=== PATIENT | female | born 1955 | race Caucasian/White ===

== ENCOUNTER 2019-11-08 07:19 | Emergency (ER) | payer BC, MEDICARE, SELFPAY ==
[2019-11-08 07:20] VITALS: BP 149/89; PULSE 54; RESP 17; TEMP 37.4; O2SAT 97; BMI 26.1
--- NOTE | 2019-11-08 07:41 | RAD_ITS ---
STUDY: X-RAY - RIGHT FOOT CLINICAL: Female, 64 years old. Fall, bruising laterally. TECHNIQUE: 3 view(s) of the foot. COMPARISON: None. FINDINGS: Acute oblique oriented fracture through the right metatarsal shaft. No dislocation. No bone destruction. Chronic dorsal talar avulsion fragment. Regions of mild joint space narrowing. Achilles enthesophyte. 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 Soft tissue swelling laterally RAD/Foot min 3 Views IMPRESSION: Acute obliquely oriented right fifth metatarsal shaft fracture Soft tissue swelling Electronically Signed: Maxim Alarcon DO at 8:06 EST Tel , Service support ,
--- NOTE | 2019-11-08 07:42 | ED.DCSUM_ITS ---
- ER Visit Summary Date of Service: 11/08/19 Chief Complaint: Right foot injury History of Present Illness: The patient is a 64 F who presents with a right foot injury that occurred yesterday. Patient states she missed a step and twisted her right foot. Patient states the pain is sharp and throbbing. Patient states pain is worse with movement and ambulation. Patient denies any paresthesias or weakness. Patient denies any head injury or loss of consciousness. Patient denies any other injuries. Physical Examination: Vital signs are stable. Patient is afebrile. Patient is in no acute distress. There is tenderness, edema, and ecchymosis over the distal fifth metatarsal. There is no bony crepitance or step-off. There is no deformity noted. Sensation was intact to light touch in all digits. Capillary refill was less than 2 seconds in all digits. There is good pedal pulse. There is good range of motion. Test Results: X-rays of the right foot were obtained. There is a nondisplaced oblique fracture of the shaft of the fifth metatarsal. This was interpreted by the radiologist and myself. Emergency Department Course and Treatment: Patient was given a walking boot. Patient was instructed to ice and elevate the right foot. Patient was given referral to Dr. Morse who is on-call for orthopedics. Patient was instructed to follow-up in 5-7 days. Patient declined analgesics. Patient understood and was agreeable with the plan. All questions were answered. Disposition: Discharge home Impression: Acute fracture right fifth metatarsal This note was generated with [employer] dictation software. It may contain incorrect words, spelling, and punctuation that were not noted in review of the chart prior to signing ED Disposition - Plan for ED Patient: Disposition: Home or Assisted Living Diagnosis: Nondisplaced fracture of fifth right metatarsal bone Instructions: FRACTURE, Foot Referrals: Alex Dalal III, MD [Primary Care Provider] - Bean Morse MD [STAFF PHYSICIAN] - 5-7 Days
--- NOTE | 2019-11-08 08:28 | ED.RN ---
DISCHARGE INSTRUCTIONS GIVEN TO AND REVIEWED WITH PATIENT, PATIENT DENIES QUESTIONS OR CONCERNS AND VOICES UNDERSTANDING OF DISCHARGE INSTRUCTIONS.
== END 2019-11-08 08:37 | disposition home or self-care (01) ==
PROVIDERS: Emergency Provider Emergency Medicine; Family Provider Family Medicine; PCP Family Medicine
DX: S92.354A Nondisplaced fracture of fifth metatarsal bone, right foot, initial encounter for closed fracture (principal); X50.1XXA Overexertion from prolonged static or awkward postures, initial encounter; Y93.9 Activity, unspecified; Y92.9 Unspecified place or not applicable; Y99.9 Unspecified external cause status; E03.9 Hypothyroidism, unspecified; Z79.899 Other long term (current) drug therapy
CPT/HCPCS: 73630; 99283

== ENCOUNTER → 2020-01-24 08:04 | Outpatient (CLI) | payer BC, MEDICARE, SELFPAY ==
--- NOTE | 2020-01-24 08:09 | CT_ITS ---
STUDY: CT RIGHT FOOT REASON FOR EXAM: Female, 64 years old. RIGHT FOOT FX 11/07/19 RADIATION DOSAGE (If Supplied By Facility): CTDIvol = ( 15.35 ) mGy, DLP = ( 357.60 ) mGycm TECHNIQUE: Thin section transaxial imaging of the foot was obtained, with sagittal and coronal reconstructed images. Individualized dose optimization techniques were used for this CT. COMPARISON: Previous plain film study of 11/08/2019 FINDINGS: Normal talus, calcaneus, and tarsal bones. Normal visualized tibiotalar, subtalar, talonavicular, calcaneocuboid, tarsal and tarsometatarsal articulations. There is a nondisplaced nonunited oblique fracture of the distal fifth metatarsal shaft. There is sclerosis of fracture margins with minimal associated callus formation. Bone union has not occurred as of yet. Normal metatarsophalangeal joint of the great toe. Normal tibial and fibular sesamoid bones. Normal interphalangeal joint of the great toe. Normal phalanges of the great toe. Normal second through fifth metatarsophalangeal joints. Normal interphalangeal joints and phalanges of the lesser toes. The soft tissue structures are unremarkable. CT/Extremity Lower without Contra IMPRESSION: Nondisplaced nonunited oblique fracture of the distal fifth metatarsal shaft. There is sclerosis of fracture margins with minimal associated callus formation. Bone union has not occurred as of yet. Electronically Signed: Lauro Chopra MD at 19:50 EDT , Service support ,
== END ==
PROVIDERS: PCP Family Medicine; Referring Provider Podiatrist Foot & Ankle Surgery; Visit Provider Podiatrist Foot & Ankle Surgery
DX: S92.351D Displaced fracture of fifth metatarsal bone, right foot, subsequent encounter for fracture with routine healing (principal); X58.XXXD Exposure to other specified factors, subsequent encounter
CPT/HCPCS: 73700